=== PATIENT | female | born 1955 | race Caucasian/White ===

== ENCOUNTER 2018-02-13 10:03 | Emergency (ER) | payer MEDICAID ==
[~2018-02-13] VITALS: Ht 167.6 cm; Wt 99.1 kg
[2018-02-13 10:18] VITALS: BP 162/99
[2018-02-13] MEDS ORDERED: ASPI-496 PO (10:40)
[2018-02-13] MEDS ORDERED: LOSARTAN (10:40)
[2018-02-13] MEDS ORDERED: GABAPENTIN (10:40)
[2018-02-13] MEDS ORDERED: METROPOLOL (10:40)
[2018-02-13] MEDS ORDERED: INSU100I17 SC (10:40)
[2018-02-13] MEDS ORDERED: METFORMIN (10:40)
[2018-02-13] MEDS ORDERED: HYDROCHLOROTHIAZIDE (10:40)
[2018-02-13] MEDS ORDERED: ATORVASTATIN (10:41)
== END 2018-02-13 11:13 | disposition home or self-care (01) ==
LOC: ED 11:00
DX: M65.332 Trigger finger, left middle finger (principal); Z76.0 Encounter for issue of repeat prescription; E11.9 Type 2 diabetes mellitus without complications; F17.200 Nicotine dependence, unspecified, uncomplicated
CPT/HCPCS: 82962; 99283

== ENCOUNTER 2018-02-13 11:54 | Emergency (ER) | payer MEDICAID ==
[~2018-02-13] VITALS: Ht 167.6 cm; Wt 98.8 kg
[~2018-02-13 11:54] MED LIST: ASPI-496 PO; ATORVASTATIN; GABAPENTIN; HYDROCHLOROTHIAZIDE; INSU100I17 SC; LOSARTAN; METFORMIN; METROPOLOL
[2018-02-13 12:20] VITALS: BP 159/91
[2018-02-13] MEDS ORDERED: INSULIN ASPART 70/30 100U/ML, PEN SQ-INSULIN ONE (13:00)
== END 2018-02-13 13:44 | disposition home or self-care (01) ==
LOC: ED 13:15
DX: E11.9 Type 2 diabetes mellitus without complications (principal); F17.200 Nicotine dependence, unspecified, uncomplicated
CPT/HCPCS: 96372; 99283; J1815